=== PATIENT | female | born 1950 | race Caucasian/White ===

== ENCOUNTER 2021-08-27 15:17 | Emergency (ER) | payer OTHER ==
[~2021-08-27] VITALS: Ht 160 cm; Wt 107.7 kg
[2021-08-27 15:50] LABS: BASOPHILS % (AUTO) 0.2 % (0-1); EOSINOPHILS % (AUTO) 0.6 % (0-6); HEMATOCRIT 42.9 % (35.0-45.0); HEMOGLOBIN 14.4 g/dl (12.0-16.0); LYMPHOCYTES # (AUTO) 0.7 X10'3 (1.1-4.8); LYMPHOCYTES % (AUTO) 8.7 % (21-51); MEAN CORPUSCULAR HEMOGLOBIN 28.9 PG (27.0-31.0); MEAN CORPUSCULAR HGB CONC 33.6 g/dL (33.0-36.5); MEAN CORPUSCULAR VOLUME 86.1 FL (78-98); MEAN PLATELET VOLUME 8.6 FL (7.4-10.4); MONOCYTES # (AUTO) 0.3 X10'3 (0-0.9); MONOCYTES % (AUTO) 4.3 % (2-12); NEUTROPHILS # (AUTO) 6.5 X10'3 (1.8-7.7); NEUTROPHILS % (AUTO) 86.2 % (42-75); PLATELET COUNT 235 X10'3 (140-440); RED BLOOD COUNT 4.98 X10'6 (4.20-5.60); RED CELL DISTRIBUTION WIDTH 13.9 % (11.5-14.5); WHITE BLOOD COUNT 7.5 X10'3 (4.5-11.0)
[2021-08-27 16:06] LABS: ALANINE AMINOTRANSFERASE 24 U/L (12-78); ALBUMIN 3.9 G/DL (3.4-5.0); ALBUMIN/GLOBULIN RATIO 1.2 (1.1-1.5); ALKALINE PHOSPHATASE 79 IU/L (46-116); ANION GAP 14 (8-16); ASPARTATE AMINO TRANSFERASE 19 U/L (10-37); BILIRUBIN,TOTAL 0.4 MG/DL (0.1-1.0); BLOOD UREA NITROGEN 26 MG/DL (7-18); BUN/CREATININE RATIO 24.5 (6.6-38.0); CALCIUM 8.6 MG/DL (8.5-10.1); CHLORIDE 107 MMOL/L (99-107); CREATININE 1.06 MG/DL (0.40-0.90); GLUCOSE 124 MG/DL (70-104); LIPASE 63 U/L (73-393); POTASSIUM 3.6 MMOL/L (3.5-5.1); SODIUM 145 MMOL/L (135-145); TOTAL CARBON DIOXIDE 24.1 MMOL/L (24-32); TOTAL PROTEIN 7.2 G/DL (6.4-8.2); eGFR 51 ML/MIN
[2021-08-27] MEDS ORDERED: normal saline 1000ML IV soln IVB ONE (16:35)
[2021-08-27] MEDS ORDERED: ondansetron/PF 4mg/2ml inj IV ONE (16:35)
[2021-08-27] MEDS ORDERED: iohexol 300mg/ml 100ml inj. ONE (17:24)
[2021-08-27] MEDS ORDERED: METR-159 PO (18:29)
[2021-08-27] MEDS ORDERED: ONDA-104 PO (18:29)
[2021-08-27] MEDS ORDERED: CIPR-429 PO (18:29)
[2021-08-27] MEDS ORDERED: ciprofloxacin 250mg tablet PO ONE (19:05)
[2021-08-27] MEDS ORDERED: metroNIDAZOLE 500mg tablet PO ONE (19:05)
[2021-08-27 19:19] VITALS: BP 122/69
== END 2021-08-27 19:22 | disposition home or self-care (01) ==
LOC: ER 15:17
DX: R10.84 Generalized abdominal pain (principal); K52.9 Noninfective gastroenteritis and colitis, unspecified; M19.90 Unspecified osteoarthritis, unspecified site; Z79.2 Long term (current) use of antibiotics; Z79.899 Other long term (current) drug therapy
CPT/HCPCS: 36415; 74177; 80053; 83690; 85025; 93005; 96361; 96374; 99285; J2405; J7030; Q9967

== ENCOUNTER 2024-03-12 11:20 | Inpatient (IN) | payer MEDICARE, BC ==
[~2024-03-12] VITALS: Ht 160 cm; Wt 107.7 kg
[~2024-03-12 11:20] MED LIST: ONDA-104 PO
[2024-03-12 12:10] LABS: BASOPHILS % (AUTO) 0.4 % (0-1); EOSINOPHILS # (AUTO) 0.2 X10'3 (0-0.9); HEMATOCRIT 41.9 % (35.0-45.0); HEMOGLOBIN 13.6 g/dl (12.0-16.0); LYMPHOCYTES # (AUTO) 1.6 X10'3 (1.1-4.8); LYMPHOCYTES % (AUTO) 14.8 % (21-51); MEAN CORPUSCULAR HEMOGLOBIN 28.7 PG (27.0-31.0); MEAN CORPUSCULAR HGB CONC 32.5 g/dL (33.0-36.5); MEAN CORPUSCULAR VOLUME 88.5 FL (78-98); MEAN PLATELET VOLUME 9.4 FL (7.4-10.4); MONOCYTES # (AUTO) 0.7 X10'3 (0-0.9); MONOCYTES % (AUTO) 7.1 % (2-12); NEUTROPHILS % (AUTO) 75.7 % (42-75); PLATELET COUNT 229 X10'3 (140-440); RED BLOOD COUNT 4.74 X10'6 (4.20-5.60); RED CELL DISTRIBUTION WIDTH 14.3 % (11.5-14.5); WHITE BLOOD COUNT 10.6 X10'3 (4.5-11.0)
[2024-03-12 12:23] LABS: ALANINE AMINOTRANSFERASE 16 U/L (12-78); ALBUMIN 3.3 G/DL (3.4-5.0); ALBUMIN/GLOBULIN RATIO 0.8 (1.1-1.5); ALKALINE PHOSPHATASE 71 IU/L (46-116); ANION GAP 7 (8-16); APTT 29 SECONDS (22-32); ASPARTATE AMINO TRANSFERASE 11 U/L (10-37); BILIRUBIN,TOTAL 0.7 MG/DL (0.1-1.0); BLOOD UREA NITROGEN 15 MG/DL (7-18); BUN/CREATININE RATIO 13.9 (10.0-20.0); CALCIUM 8.6 MG/DL (8.5-10.1); CHLORIDE 104 MMOL/L (99-107); CREATININE 1.08 MG/DL (0.40-0.90); GLUCOSE 103 MG/DL (70-104); LIPASE 18 U/L (16-77); POTASSIUM 3.6 MMOL/L (3.5-5.1); PROTHROMBIN TIME 10.7 SECONDS (9.0-12.0); SODIUM 139 MMOL/L (135-145); TOTAL CARBON DIOXIDE 27.7 MMOL/L (24-32); TOTAL PROTEIN 7.3 G/DL (6.4-8.2); eGFR 50 ML/MIN
[2024-03-12] MEDS: normal saline 1000ml 1,000 ML IV ONE (13:00)
[2024-03-12] MEDS: morphine 2 MG/ML inj. syringe IV PRN (13:02)
[2024-03-12] MEDS: piperacillin/tazo 3.375gm/50ml 50 ML IV STA (13:03)
[2024-03-12] MEDS: normal saline 1000ML IV soln IVB ONE (13:08)
[2024-03-12 13:20] LABS: BILIRUBIN,URINE NEGATIVE (Neg); CLARITY,URINE CLOUDY (Clear); COLOR,URINE YELLOW (Yellow); GLUCOSE, URINE NEGATIVE (Neg); KETONES,URINE 15 mg/dl (Neg); LEUKOCYTE ESTERASE ,URINE SMALL (Neg); NITRITES, URINE POSITIVE (Neg); OCCULT BLOOD,URINE SMALL (Neg); PROTEIN,URINE 30 mg/dl (Neg)
[2024-03-12 13:22] LABS: UA COLLECTION TYPE CLN CATCH MIDSTREAM
[2024-03-12 13:32] LABS: BACTERIA,URINE 4+ /HPF (Neg); SQUAMOUS EPITHELIAL CELL,UR MANY /LPF (FEW); WBC,URINE TNTC /HPF (0-4)
[2024-03-12 13:33] LABS: WBC CLUMPS,URINE MODERATE /HPF (NEGATIVE)
[2024-03-12 13:34] LABS: RBC,URINE 0-2 /HPF (0-2)
[2024-03-12] MEDS ORDERED: ondansetron/PF 4mg/2ml inj IV PRN (13:40)
[2024-03-12] MEDS: normal saline 1000ml 1,000 ML IV SCH (13:40)
[2024-03-12] MEDS ORDERED: magnesium hydroxide 30ml (MOM) UD suspension PO PRN (13:40)
[2024-03-12] MEDS ORDERED: potassium Cl 20 mEq SR tablet PO PRN (13:40)
[2024-03-12] MEDS ORDERED: acetaminophen 325mg tablet PO PRN (13:40)
[2024-03-12] MEDS ORDERED: HYDROmorphone/PF 0.2 MG/ML SYRINGE IV PRN (13:40)
[2024-03-12] MEDS ORDERED: morphine 2 MG/ML inj. syringe IV PRN ×2 (13:40)
[2024-03-12] MEDS ORDERED: mag hydrox/Alum hydrox/simeth 30ml oral suspension PO PRN (13:40)
[2024-03-12] MEDS: HYDROmorphone inj. 0.5 MG/0.5 ML DISP.SYRIN IV PRN (14:41)
[2024-03-12 15:55] VITALS: BP 146/69; PULSE 74; RESP 18; TEMP 97.9; O2SAT 97
[2024-03-12] MEDS: piperacillin/tazo 4.5gm/100ml 100 ML IV SCH (17:49)
[2024-03-12] MEDS: enoxaparin 40mg/0.4ml syringe SUBCUT SCH (17:50)
[2024-03-12 18:00] VITALS: BP 152/68; PULSE 73; RESP 20; TEMP 98.6; O2SAT 97
[2024-03-12] MEDS ORDERED: PRAM0.5T12 (18:52)
[2024-03-12] MEDS ORDERED: ATEN50TA8 PO (18:52)
[2024-03-12 20:00] VITALS: RESP 18; O2SAT 95
[2024-03-12] MEDS: docusate sod 100mg capsule PO SCH (20:00)
[2024-03-12 23:00] VITALS: BP 129/47; PULSE 75; RESP 16; TEMP 99.5; O2SAT 96
[2024-03-13] VITALS (7 sets, daily range): BP systolic 138–173; BP diastolic 57–72; PULSE 59–70; RESP 17–22; TEMP 97.6–98.7; O2SAT 94–98
[2024-03-13] MEDS ORDERED: LISI40TA13 PO (04:07)
[2024-03-13] MEDS ORDERED: TEMA15CA5 PO (04:10)
[2024-03-13 04:29] LABS: BASOPHILS # (AUTO) 0.1 X10'3 (0-0.2); BASOPHILS % (AUTO) 0.8 % (0-1); EOSINOPHILS # (AUTO) 0.2 X10'3 (0-0.9); EOSINOPHILS % (AUTO) 2.3 % (0-6); HEMATOCRIT 39.4 % (35.0-45.0); HEMOGLOBIN 12.8 g/dl (12.0-16.0); LYMPHOCYTES # (AUTO) 1.8 X10'3 (1.1-4.8); LYMPHOCYTES % (AUTO) 19.9 % (21-51); MEAN CORPUSCULAR HEMOGLOBIN 28.7 PG (27.0-31.0); MEAN CORPUSCULAR HGB CONC 32.5 g/dL (33.0-36.5); MEAN CORPUSCULAR VOLUME 88.3 FL (78-98); MONOCYTES # (AUTO) 0.6 X10'3 (0-0.9); NEUTROPHILS # (AUTO) 6.2 X10'3 (1.8-7.7); PLATELET COUNT 213 X10'3 (140-440); RED BLOOD COUNT 4.47 X10'6 (4.20-5.60); RED CELL DISTRIBUTION WIDTH 14.2 % (11.5-14.5); WHITE BLOOD COUNT 8.9 X10'3 (4.5-11.0)
[2024-03-13 04:49] LABS: ALANINE AMINOTRANSFERASE 13 U/L (12-78); ALBUMIN/GLOBULIN RATIO 0.8 (1.1-1.5); ALKALINE PHOSPHATASE 66 IU/L (46-116); ANION GAP 9 (8-16); ASPARTATE AMINO TRANSFERASE 11 U/L (10-37); BILIRUBIN,TOTAL 0.9 MG/DL (0.1-1.0); BLOOD UREA NITROGEN 12 MG/DL (7-18); BUN/CREATININE RATIO 12.9 (10.0-20.0); CALCIUM 8.4 MG/DL (8.5-10.1); CHLORIDE 108 MMOL/L (99-107); CREATININE 0.93 MG/DL (0.40-0.90); GLUCOSE 100 MG/DL (70-104); MAGNESIUM 2.1 MG/DL (1.5-2.4); PHOSPHORUS 2.9 MG/DL (2.3-4.5); POTASSIUM 3.4 MMOL/L (3.5-5.1); SODIUM 140 MMOL/L (135-145); TOTAL CARBON DIOXIDE 22.6 MMOL/L (24-32); TOTAL PROTEIN 6.9 G/DL (6.4-8.2); eCRCL 45 ML/MIN; eGFR 59 ML/MIN
[2024-03-13] MEDS: potassium Cl 20 mEq SR tablet PO PRN (08:41)
[2024-03-14 04:12] LABS: BASOPHILS # (AUTO) 0.1 X10'3 (0-0.2); EOSINOPHILS # (AUTO) 0.3 X10'3 (0-0.9); EOSINOPHILS % (AUTO) 5.4 % (0-6); HEMATOCRIT 35.7 % (35.0-45.0); HEMOGLOBIN 11.7 g/dl (12.0-16.0); LYMPHOCYTES # (AUTO) 1.3 X10'3 (1.1-4.8); LYMPHOCYTES % (AUTO) 26.3 % (21-51); MEAN CORPUSCULAR HEMOGLOBIN 29.2 PG (27.0-31.0); MEAN CORPUSCULAR HGB CONC 32.9 g/dL (33.0-36.5); MEAN CORPUSCULAR VOLUME 88.9 FL (78-98); MEAN PLATELET VOLUME 9.3 FL (7.4-10.4); MONOCYTES # (AUTO) 0.4 X10'3 (0-0.9); MONOCYTES % (AUTO) 8.3 % (2-12); PLATELET COUNT 209 X10'3 (140-440); RED BLOOD COUNT 4.01 X10'6 (4.20-5.60); RED CELL DISTRIBUTION WIDTH 14.1 % (11.5-14.5)
[2024-03-14 04:25] LABS: ALANINE AMINOTRANSFERASE 12 U/L (12-78); ALBUMIN 2.6 G/DL (3.4-5.0); ALBUMIN/GLOBULIN RATIO 0.7 (1.1-1.5); ALKALINE PHOSPHATASE 55 IU/L (46-116); ANION GAP 7 (8-16); ASPARTATE AMINO TRANSFERASE 28 U/L (10-37); BILIRUBIN,TOTAL 0.6 MG/DL (0.1-1.0); BLOOD UREA NITROGEN 8 MG/DL (7-18); BUN/CREATININE RATIO 10.3 (10.0-20.0); CALCIUM 8.2 MG/DL (8.5-10.1); CHLORIDE 110 MMOL/L (99-107); CREATININE 0.78 MG/DL (0.40-0.90); GLUCOSE 84 MG/DL (70-104); PHOSPHORUS 2.7 MG/DL (2.3-4.5); POTASSIUM 3.5 MMOL/L (3.5-5.1); SODIUM 142 MMOL/L (135-145); TOTAL CARBON DIOXIDE 24.6 MMOL/L (24-32); TOTAL PROTEIN 6.2 G/DL (6.4-8.2); eCRCL 54 ML/MIN; eGFR 73 ML/MIN
[2024-03-14] MEDS: dextrose 5%-1/2 normal saline 1,000 ML IV SCH (04:42)
[2024-03-14 06:00] VITALS: BP 145/57; PULSE 57; RESP 15; TEMP 97.5; O2SAT 98
[2024-03-14 09:20] VITALS: RESP 16
[2024-03-14 10:00] VITALS: BP 179/77; PULSE 51; RESP 16; TEMP 97.6; O2SAT 99
[2024-03-14] MEDS: pantoprazole 40mg Tablet.DR PO ONE (13:36)
[2024-03-14 13:40] LABS: BILIRUBIN,URINE NEGATIVE (Neg); CLARITY,URINE CLEAR (Clear); COLOR,URINE YELLOW (Yellow); GLUCOSE, URINE NEGATIVE (Neg); KETONES,URINE 15 mg/dl (Neg); LEUKOCYTE ESTERASE ,URINE NEGATIVE (Neg); NITRITES, URINE NEGATIVE (Neg); OCCULT BLOOD,URINE TRACE-INTACT (Neg); PROTEIN,URINE NEGATIVE (Neg); UROBILINOGEN,URINE 0.2 E.U/dL (0.2-1.0)
[2024-03-14 13:53] LABS: UA COLLECTION TYPE CLN CATCH MIDSTREAM
[2024-03-14 13:55] LABS: BACTERIA,URINE FEW /HPF (Neg); MUCUS STRANDS NONE SEEN /LPF (Neg); SQUAMOUS EPITHELIAL CELL,UR MANY /LPF (FEW); WBC,URINE 0-4 /HPF (0-4)
[2024-03-14 14:54] VITALS: RESP 16; O2SAT 99
[2024-03-14] MEDS ORDERED: CIPR-202 PO (15:11)
[2024-03-14] MEDS ORDERED: PANT40TA54 PO (15:11)
[2024-03-14] MEDS ORDERED: HYDR-3965 PO (15:14)
[2024-03-15] MEDS ORDERED: pantoprazole 40mg Tablet.DR PO SCH (07:30)
== END 2024-03-14 17:27 | disposition home or self-care (01) | DRG 391 ==
LOC: ER 11:20 → ED HOLD 13:50 → SUR 3N 15:40
PROVIDERS: ADMIT Registered Nurse Psychiatric/Mental Health; ATTEND Registered Nurse Psychiatric/Mental Health
DX: K57.20 Diverticulitis of large intestine with perforation and abscess without bleeding (principal); N17.0 Acute kidney failure with tubular necrosis; N39.0 Urinary tract infection, site not specified; G25.81 Restless legs syndrome; I10 Essential (primary) hypertension; Z90.710 Acquired absence of both cervix and uterus
CPT/HCPCS: 36415; 74176; 80053; 81001; 82948; 83605; 83690; 83735; 84100; 84145; 85025; 85610; 85730; 87040; 87081; 93925; 93970; 96365; 96375; 99285; G0378; J1170; J1650; J2270; J2543; J7030

== ENCOUNTER 2025-03-12 05:12 | Emergency (ER) | payer MEDICARE, BC ==
[~2025-03-12] VITALS: Ht 160 cm; Wt 98.5 kg
[~2025-03-12 05:12] MED LIST changes: +ATEN50TA8 PO; +LISI40TA20 PO; +PANT40TA54 PO; +PRAM0.5T12; +TEMA15CA5 PO
--- NOTE | 2025-03-12 05:43 | Physician Documentation ---
History of Present Illness ~ Chief Complaint: See Chief Complaint Stated Complaint: NECK DISCOMFORT Time Seen by MD: 05:42 Primary Medical Doctor: NONE HPI Patient presents to the emergency room with swelling to the bottom of her ear. She states she went to sleep last night and it was not there. No prior instances. No fevers. No pain associated with the mass Medication Reconciliation Allergies: Coded Allergies: No Known Allergies (Unverified , 03/12/24) Scheduled Atenolol (Atenolol), 1 TAB PO DAILY, (Reported) Lisinopril* (Lisinopril*), 1 TAB PO DAILY, (Reported) Pantoprazole Sodium (Pantoprazole Sodium), 40 MG PO BKF Scheduled PRN Temazepam (Restoril), 1 CAP PO HSPRN PRN for sleep, (Reported) Miscellaneous Medications Pramipexole Di-Hcl (Pramipexole Dihydrochloride), (Reported) Discontinued Medications Ondansetron HCl (Ondansetron HCl), 1 TAB PO Q8H Discontinued Reason: patient no longer taking Past Medical History Past Medical History: Arthritis Past Surgical History: orthopedic surgeries Patient History: FH: COPD (chronic obstructive pulmonary disease) FATHER, , Cause: COPD (chronic obstructive pulmonary disease) FAMILY/OTHER, Name: Sister, , Cause: COPD (chronic obstructive pulmonary disease) Alcohol Use: None Drug Use: none Lives with: Spouse Lives In: Home Occupation: retired Review of Systems ROS All review of systems negative except as per HPI Physical Exam Vital Signs: Temperature: 97.7, Source: Oral, Heart Rate: 73, Respiratory Rate: 16, BP: 185/102, Pulse Oximetry: 97, Weight: 98.500 Oxygen Flow Rate: 0 Physical Exam General: Patient is awake, alert, oriented x4. Anxious Head: Normocephalic and atraumatic. Eyes: Conjunctival normal. EOMI. PERRL. ENT: Mucous membranes moist. 2 cm non mobile mass located to the inferior aspect of patient's left ear where it connects to her neck. No fluctuance or erythema or tenderness elicited with palpation Neck: Supple, trachea is midline. Chest: Clear to auscultation bilaterally without rales, rhonchi, or wheezes. There is no accessory muscle use or retractions. Cardiac: RRR without murmurs, gallops, or rubs. Progress Progress Note 74 year old female signed out to me by Dr. Patel to follow up on the results of the CT max/face, which demonstrated a solid mass about 2cm in size of unknown etiology but recommended biopsy. Began transfer process to locate receiving facility that can accommodate this patient for an immediate biopsy. Plan of care explained to patient and family. Spoke with a receiving ENT specialist through the [facility] who advised that this solid parotid mass does not require immediate hospitalization but can be followed up for biopsy at any ENT office. Relayed message to family and we will disposition this patient with instructions to return immediately to our ER if the mass rapidly increases in size. Results/Orders Results/Orders Orders - MAHESH PATEL MD Ct Neck Soft Tissues (03/12/25 07:50) Regular Diet (03/13/25 Breakfast) Completed Orders - MAHESH PATEL MD Cbc/Diff (03/12/25 05:49) BMP (03/12/25 05:49) Ct Neck Soft Tissues (03/12/25 07:50) Iohexol 300mg/Ml 100ml Inj. (Omnipaque-3 (03/12/25 07:35) Vital Signs 03/12/25 03/12/25 03/12/25 03/12/25 05:19 05:50 05:50 06:58 Temp 97.7 97.7 Pulse 73 58 56 Resp 16 16 16 16 B/P (MAP) 185/102 159/86 (110) 176/84 (114) Pulse Ox 97 99 99 O2 Flow Rate 0 0 03/12/25 03/12/25 03/12/25 03/12/25 08:05 09:16 10:12 10:51 Temp 97.7 97.7 97.7 97.7 Pulse 57 58 56 76 Resp 16 16 16 B/P (MAP) 185/92 (123) 147/84 (105) 170/76 170/76 (107) Pulse Ox 97 98 96 97 O2 Flow Rate 0 0 0 03/12/25 03/12/25 03/12/25 12:49 14:30 16:35 Temp 97.7 97.7 97.7 Pulse 68 78 63 Resp 16 16 16 B/P (MAP) 139/65 (89) 154/83 (106) 171/89 (116) Pulse Ox 97 97 99 O2 Flow Rate 0 0 0 Laboratory Tests Test 03/12/25 06:08 03/12/25 08:00 03/12/25 11:26 White Blood Count 4.6 Red Blood Count 4.53 Hemoglobin 13.1 Hematocrit 39.5 Mean Corpuscular Volume 87.1 Mean Corpuscular Hemoglobin 28.8 Mean Corpuscular Hemoglobin Concent 33.1 Red Cell Distribution Width 14.2 Platelet Count 257 Mean Platelet Volume 8.9 Neutrophils (%) (Auto) 40.3 L Lymphocytes (%) (Auto) 47.7 Monocytes (%) (Auto) 6.8 Eosinophils (%) (Auto) 4.0 Basophils (%) (Auto) 1.2 H Neutrophils # (Auto) 1.9 Lymphocytes # (Auto) 2.2 Monocytes # (Auto) 0.3 Eosinophils # (Auto) 0.2 Basophils # (Auto) 0.1 CBC Comment Sodium Level 143 Potassium Level 3.2 L Chloride Level 107 Carbon Dioxide Level 29.4 Anion Gap 7 L Blood Urea Nitrogen 19 H Creatinine 0.92 H Estimated GFR/1.73 m2 60 BUN/Creatinine Ratio 20.7 H Glucose Level 95 Calcium Level 8.2 L Albumin 3.5 Chemistry Comments Urine Specimen Description Cln catch midstream Urine Color Straw Urine Clarity Clear Urine pH 6.5 Urine Specific [place] <=1.005 Urine Protein Negative Urine Glucose (UA) Negative Urine Ketones Negative Urine Occult Blood Negative Urine Nitrite Negative Urine Bilirubin Negative Urine Urobilinogen 0.2 Urine Leukocyte Esterase Trace H Urine RBC 0-2 Urine WBC 5-10 H Urine Squamous Epithelial Cells Moderate Urine Bacteria 4+ Urine Culture Indicated Indicated Volume Urine Centrifuged 10 ml Urine Comment SARS-CoV-2 Antigen (Rapid) Negative Microbiology Date/Time Source Procedure Growth Status 03/12/25 09:28 Urine Clean Catch Midstream Urine Culture - Preliminary Culture received. Resulted Medical Decision Making Findings Patient presents to the emergency room with non painful non mobile mass below her left ear. Differentials include but are not limited to branchial cleft cyst, abscess, lymphadenopathy, foreign body therefore emergent labs and imaging indicated. Departure Disposition: HOME / SELF CARE / HOMELESS Impression: Primary Impression: Parotid mass Condition: Stable Additional Instructions: Please follow up with your primary care provider and an ear/nose/throat specialist of your choice to obtain a biopsy of the parotid mass that we diagnosed today. Referrals: NO PRIMARY CARE PROVIDER (PCP) Education Educated: Patient, Family Educated regarding: diagnosis, need for follow up Signature Scribe Signature: . Attestation: The note accurately reflects work and decisions made by me.Mahesh Patel MD 03/12/25 19:08 . MAHESH PATEL MD Mar 12, 2025 05:43 CONRAD PITTS MD Mar 12, 2025 16:07
[2025-03-12 06:29] LABS: MEAN PLATELET VOLUME 8.9 FL (7.4-10.4); RED CELL DISTRIBUTION WIDTH 14.2 % (11.5-14.5)
[2025-03-12 06:37] LABS: CREATININE 0.92 MG/DL (0.40-0.90); TOTAL CARBON DIOXIDE 29.4 MMOL/L (24-32); eCRCL 45 ML/MIN; eGFR 60 ML/MIN
[2025-03-12] MEDS ORDERED: iohexol 300mg/ml 100ml inj. ONE (07:35)
--- NOTE | 2025-03-12 08:11 | RADIOLOGY REPORT ---
CLINICAL INFORMATION: 74 years old, Female; mass just below left ear. TECHNIQUE: Axial CT images of the neck soft tissues were obtained after the uneventful administration of 100 mL Omnipaque 300 IV contrast. Coronal and sagittal reformatted images were obtained, stored, and reviewed. One or more of the following dose reduction techniques were used: Automated exposure control. Adjustment of mA and/or kV according to patient size. CTDIvol = 17.21 mGy DLP = 427.65 mGy-cm COMPARISON: None FINDINGS: Nasopharynx: Torus tubarius and fossa of [place]muller are unremarkable. No mass or fluid collection. Unremarkable adenoid tonsils. Oropharynx: No evidence of mass or abscess. Unremarkable palatine tonsils and lingual tonsils. Hypopharynx/Larynx: Unremarkable. No mass or fluid collection. Paranasal sinuses: Mild mucosal thickening of the visualized portions of the paranasal sinuses. Lymph nodes: No lymphadenopathy. Neck glands: Ovoid enhancing mass in the left parotid gland at its posterior superior aspect measures up to 2.2 cm in AP dimension, 3.1 cm in transverse dimension, and 2.5 cm in craniocaudal dimension, with smooth margins. Right parotid gland, bilateral submandibular glands, and thyroid gland appear un remarkable. Vasculature: Unremarkable. Bones: Multilevel moderate to severe disc space narrowing of the cervical spine with associated endplate sclerosis and endplate spurring. Visualized superior mediastinum: Unremarkable. Lung apices: Unremarkable. Other findings: None. IMPRESSION: Ovoid, smoothly marginated enhancing mass in the left parotid gland. Differential considerations would include pleomorphic adenoma or warthin's tumor. Biopsy recommended to further characterize.
[2025-03-12 09:19] LABS: LEUKOCYTE ESTERASE ,URINE TRACE (Neg); NITRITES, URINE NEGATIVE (Neg); OCCULT BLOOD,URINE NEGATIVE (Neg)
[2025-03-12 09:20] LABS: UA COLLECTION TYPE CLN CATCH MIDSTREAM
[2025-03-12 09:27] LABS: SQUAMOUS EPITHELIAL CELL,UR MODERATE /LPF (FEW)
[2025-03-12 16:35] VITALS: TEMP 97.7
[2025-03-12 19:17] VITALS: BP 177/95; PULSE 71; RESP 18; O2SAT 97
== END 2025-03-12 19:17 | disposition home or self-care (01) ==
LOC: ER 05:12
DX: K11.8 Other diseases of salivary glands (principal); M19.90 Unspecified osteoarthritis, unspecified site; Z20.822 Contact with and (suspected) exposure to COVID-19; Z79.899 Other long term (current) drug therapy
CPT/HCPCS: 36415; 70491; 80048; 81001; 85025; 87088; 87811; 99285; J7030; Q9967; 87077; 87186